=== PATIENT | male | born 1950 | race Caucasian/White ===

== ENCOUNTER 2017-11-12 07:39 | Emergency (ER) | payer MEDICARE, OTHER ==
[2017-11-12] MEDS ORDERED: Amoxicillin PO (*) 875 MG TAB PO ONE (10:23)
[2017-11-12 10:52] VITALS: BP 142/79
--- NOTE | 2017-11-12 11:49 | ED ---
Bhanu Black Stephanie, scribed for Tr Hughes MD on 11/12/17 at 0841 . Throat Pain/Nasal Congestion - HPI Summary HPI Summary: The pt is a 67 y/o M presenting to the ED with c/o epistaxis that began at 01: 30 today. He denies lightheadedness. The pt is on blood thinners. He denies hx of epistaxis. - History of Current Complaint Chief Complaint: EDEpistaxis Time Seen by Provider: 11/12/17 08:12 Hx Obtained From: Patient Onset/Duration: Sudden Onset, Lasting Hours - 7, Still Present Severity: Moderate - Allergies/Home Medications Allergies/Adverse Reactions: Allergies Allergy/AdvReac Type Severity Reaction Status Date / Time No Known Allergies Allergy Verified 04/27/16 13:32 PMH/Surg Hx/FS Hx/Imm Hx Endocrine/Hematology History: Reports: Hx Diabetes - Pre-DM Cardiovascular History: Reports: Hx Deep Vein Thrombosis, Hx Hypercholesterolemia, Hx Hypertension Denies: Hx Pacemaker/ICD Respiratory History: Reports: Hx Sleep Apnea Denies: Hx Asthma Musculoskeletal History: Reports: Other Musculoskeletal History - back surgerys Sensory History: Reports: Hx Contacts or Glasses Denies: Hx Hearing Aid Opthamlomology History: Reports: Hx Contacts or Glasses Psychiatric History: Reports: Hx Depression Denies: Hx Panic Disorder - Surgical History Surgery Procedure, Year, and Place: 3 LSPINE SURGERIES 30 YRS AGO, 12 YRS AGO, LAST ONE 10 YRS AGO, GANGLION CYST REMOVED LEFT KNEE - Immunization History Date of Tetanus Vaccine: UTD Date of Influenza Vaccine: 2014 Infectious Disease History: No Infectious Disease History: Denies: Traveled Outside the [place] in Last 30 Days - Family History Known Family History: Positive: Cardiac Disease, Other - uterine CA - Social History Occupation: Retired Lives: With Family Alcohol Use: Rare Hx Substance Use: No Substance Use Type: Reports: None Hx Tobacco Use: No Smoking Status (MU): Never Smoked Tobacco Have You Smoked in the Last Year: No Review of Systems Negative: Fever Positive: Epistaxis Neurological: Other - Negative: lightheadedness All Other Systems Reviewed And Are Negative: Yes Physical Exam - Summary Physical Exam Summary: General: well-appearing, no pain, the pt is actively spitting out blood. Skin: warm, color reflects adequate perfusion, dry Head: normal Eyes: EOMI, AUDRA ENT: fresh blood on L nasal septum, blood in back of mouth Neck: supple, nontender Respiratory: CTA, breath sounds present Cardiovascular: RRR Abdomen: soft, nontender Bowel: present Musculoskeletal: normal, strength/ROM intact Neurological: normal, sensory/motor intact, A&O x3 Psychological: affect/mood appropriate Triage Information Reviewed: Yes Vital Signs On Initial Exam: Initial Vitals Temp Pulse Resp BP Pulse Ox 97.8 F 70 20 169/103 99 11/12/17 07:39 11/12/17 07:39 11/12/17 07:39 11/12/17 07:39 11/12/17 07:39 Vital Signs Reviewed: Yes Diagnostics - Vital Signs Vital Signs Temp Pulse Resp BP Pulse Ox 11/12/17 08:10 154/79 11/12/17 07:39 97.8 F 70 20 169/103 99 - Laboratory Lab Statement: Any lab studies that have been ordered have been reviewed, and results considered in the medical decision making process. Re-Evaluation - Re-Evaluation First Eval Re-Evaluation Time: 09:25 Change: Unchanged - Interior bleeding has slowed down. The pt is still coughing up some clots. The pt feels improved overall. Second Eval Re-Evaluation Time: 10:32 Change: Improved - Still coughing up some small amount of blood. ED physician further inflated the rhino rocket. ED physician spoke to who recommended for the pt to follow up in 4 days. EENT Course/Dx - Course Course Of Treatment: BP noted and advised to follow up with PCP. PT ON XARELTO FOR RECURRENT DVTs. BLEEDING SEEN LEFT NASAL SEPTUM. RHINO ROCKET PLACED WHICH SLOWED THE BLEEDING TO AN OCCATIONAL DRIP ANTERIOR AND OCCATIONAL COUGHING UP A CLOT. VSS. DISCUSSED WITH DR ABREU; PATIENT WILL CALL THE ENT OFFICE TODAY FOR F/U. RETURN TO ED IF WORSE. - Diagnoses Provider Diagnoses: HTN (hypertension), Epistaxis - Provider Notifications Discussed Care Of Patient With: Flip Abreu Time Discussed With Above Provider: 10:23 Discharge - Sign-Out/Discharge Documenting (check all that apply): Discharge - Discharge Plan Condition: Stable Disposition: HOME Prescriptions: Amoxicillin PO (*) [Amoxicillin 875 MG (*)] 875 mg PO BID #14 tab Patient Education Materials: Nosebleed (ED) Referrals: [facility] [Provider Group] Flip Abreu MD [Medical Doctor] - Megan Dasilva MD [Primary Care Provider] - Additional Instructions: FOLLOW UP WITH ENT. I SPOKE WITH DR ABREU ENT. HE ASKED FOR YOU TO CALL THE ENT OFFICE TODAY TO ARRANGE FOLLOW UP. RETURN TO THE EMERGENCY DEPARTMENT FOR ANY WORSENING OF YOUR CONDITION OR QUESTIONS OR CONCERNS. YOUR BLOOD PRESSURE WAS ELEVATED TODAY; FOLLOW UP WITH YOUR PRIMARY CARE DOCTOR WITHIN ONE WEEK. - Billing Disposition and Condition Condition: STABLE Disposition: HOME The documentation as recorded by the Bhanu garvin Stephanie accurately reflects the service I personally performed and the decisions made by me, Tr Hughes MD.
--- NOTE | 2017-11-13 02:54 | CONSULT ---
Consult Consult: PCP: Oma Dasilva MD Otorhinolaryngology: Fuentes Garces MD Date/Time: 11/12/2017 2200 Reason for Consult: post-procedural hypertension HPI: Mr Gary is a 67YO male seen in PACU post-procedure for epistaxis. Nursing reports his systolic was briefly above 200 for which he was given labetalol. His pressures have come down to the 160-180 systolic range. He denies chest pain , SOB, nausea, sweats, palpitations, light-headedness, focal W/N/T, change in speech/vision/swallow, or other issues. He does have a HX of HTN and is followed by Oma Dasilva MD. PMedHx DM2 DVT x2 HTN HLD hypothyroidism depression [facility] Orders PARoxetine HCL TAB* [Paxil TAB*] 20 mg PO DAILY 12/05/13 Acetaminophen TAB* [Tylenol TAB*] 650 mg PO Q4H PRN 04/27/16 Metformin HCl [Metformin HCl ER] 500 mg PO DAILY 04/27/16 Rivaroxaban TAB(*) [Xarelto 20 mg] 20 mg PO DAILY 04/27/16 Atorvastatin* [Lipitor 20 MG*] 20 mg PO 2100 #30 tab 04/30/16 Amoxicillin PO (*) [Amoxicillin 875 MG (*)] 875 mg PO BID #14 tab 11/12/17 Levothyroxine Sodium 100 mcg PO DAILY 11/12/17 Allergies No Known Allergies Allergy (Verified 11/12/17 19:30) PSurgHx spinal surgery x3 L knee arthroscopy SocHx: no tobacco, occasional alcohol, no recreational drugs; lives with his significant other; retired social services analyst; full code status FamHx: positive for HTN, CAD, & uterine CA ROS: as above, otherwise reviewed and all were negative vitals: Vital Signs Temp 36.3 C 11/12/17 10:53 Pulse 78 11/12/17 10:53 Resp 16 11/12/17 10:53 BP 142/79 11/12/17 10:53 Pulse Ox 96 11/12/17 10:53 Intake & Output 11/12/17 11/12/17 11/13/17 11:59 23:59 11:59 Weight 94.347 kg Constitutional: NAD, normally developed, overweight white male HEENM: atraumatic; sclera/conjunctiva: anicteric/clear; hearing: clinically intact; nasal dressing clean & dry; oropharynx: clear, mucosa moist Neck: soft tissue: non-tender; thyroid: normal Pulmonary: clear to auscultation bilaterally, good aeration, no accessory muscle use CV: RR/RR, normal S1S2, no carotid bruit, no jugular venous distention, 2+ B DP/ PT, no edema Abdominal: soft, non-distended, non-tender, no rebound/guarding/rigidity, normoactive bowel sounds, no hepatosplenomegaly or masses, no costovertebral angle tenderness Musculoskeletal: general: grossly intact; gait: stable Integumental: normal appearance and texture of exposed skin Psychiatric orientation: AA&O to PPS affect: calm mood: cooperative eye contact: good content: reliable responses: timely insight: good Impression: 67M s/p procedure for epistaxis, HX HTN with exacerbation DIAGNOSIS & PLAN Primary epistaxis : management per ORL HTN, acutely uncontrolled w/o urgency/emergency : improved & asymptomatic : OK to discharge : patient has F/U appointment with PCP on the for chest pain, SOB, N/V, palpitations, light-headedness, focal W/N/T, change in speech/swallow/vision, or other symptom worrisome enough to patient to warrant emergency evaluation Secondary DM2 : continue metformin HX DVT x2 : continue rivaroxaban HLD : continue atorvastatin hypothyroidism : continue levothyroxine depression : continue paroxetine
== END 2017-11-12 10:53 | disposition home or self-care (01) ==
LOC: ED 07:39
DX: R04.0 Epistaxis (principal); I10 Essential (primary) hypertension; E11.9 Type 2 diabetes mellitus without complications; Z86.718 Personal history of other venous thrombosis and embolism; E78.5 Hyperlipidemia, unspecified; F32.9 Major depressive disorder, single episode, unspecified; E03.9 Hypothyroidism, unspecified; G47.33 Obstructive sleep apnea (adult) (pediatric)
CPT/HCPCS: 30901; 99282; A9270-GY; J1100; J2001; J2250; J2405; J2704; J3010

== ENCOUNTER 2017-11-12 19:10 | Day surgery (SDC) | payer MEDICARE, OTHER ==
[2017-11-12] MEDS ORDERED: Sodium Citrate/Citric Acid* 15 ML UDC ONE (19:51)
[2017-11-12] MEDS ORDERED: fentaNYL* 50 MCG/ML 2 ML VIAL (100 MCG VIAL) ONE ×3 (20:14→22:54)
[2017-11-12] MEDS ORDERED: Propofol* 10 MG/ML 20 ML BTL IV PUSH ONE (20:15)
[2017-11-12] MEDS ORDERED: Lidocaine 2% PF * 5 ML VIAL ONE (20:16)
[2017-11-12] MEDS ORDERED: Scopolamine 1.5 mg* PATCH TRANSDERM PRN (20:58)
[2017-11-12] MEDS ORDERED: Ondansetron INJ* 2 MG/ML VIAL IV PRN (20:58)
[2017-11-12] MEDS ORDERED: HYDROmorphone INJ* 1 MG/ML CARPUJECT SYRINGE IV PRN (20:58)
[2017-11-12] MEDS ORDERED: PROCHLORPERAZINE INJ 5 MG/ML 2 ML VIAL IV PRN (20:58)
[2017-11-12] MEDS ORDERED: Naloxone* 0.4 MG/ML 1 ML VIAL IV PRN (20:58)
[2017-11-12] MEDS ORDERED: fentaNYL* 50 MCG/ML 2 ML VIAL (100 MCG VIAL) IV PRN (20:58)
[2017-11-12] MEDS ORDERED: Lidocaine 1% MPF wEPI 200,000* 30 ML SDV ONE (21:49)
[2017-11-12] MEDS ORDERED: Oxymetazoline 0.05% NASAL SPR* 15 ML BTL ONE ×2 (21:49→22:41)
[2017-11-12] MEDS ORDERED: Lidocaine 4% TOPICAL* 50 ML TOP.SOLN ONE (21:49)
[2017-11-12] MEDS ORDERED: Midazolam* 1 MG/ML 5 ML VIAL (5 MG) ONE (22:03)
[2017-11-12] MEDS ORDERED: Ondansetron INJ* 2 MG/ML VIAL ONE (22:15)
[2017-11-12] MEDS ORDERED: Dexamethasone IV* 4 MG/ML 1 ML (4 MG) ONE (22:15)
[2017-11-12] MEDS ORDERED: Labetalol IV* 5 MG/ML 20 ML VIAL ONE (22:52)
[2017-11-13 00:34] VITALS: BP 156/75
--- NOTE | 2017-11-13 15:11 | OP ---
DATE OF OPERATION: 11/12/17 - SDS DATE OF : 54 SURGEON: Preston Garces MD PRE-OP DIAGNOSIS: Epistaxis. POST-OP DIAGNOSIS: Epistaxis. OPERATIVE PROCEDURE: Endoscopic control of epistaxis with cautery and packing with Fibrillar under general endotracheal anesthesia. COMPLICATIONS: None. DISPOSITION: Good. SPECIMENS: Minimal during the procedure. INDICATIONS: The patient has been on Xarelto and he presented to the office earlier in the day with epistaxis. Dr. Abreu was able to get a Merocel pack in , but no more than that. He has a large septal spur that he was not able to get around and he thought the bleeding might be posterior to this. He went home , but called with continuing epistaxis and I brought him to the operating room for control. DESCRIPTION OF PROCEDURE: He was placed on the supine position in the operating room, general anesthesia induced, orotracheally intubated. The Merocel pack was in the left nostril. This was removed. His clots were suctioned and he had bleeding for multiple sites including the anterior septum off the spur and off the posterior middle turbinate. I cauterized all these different areas, suctioned out clot, packed with New-Synephrine, removed that and controlled everything that was bleeding. I placed Fibrillar in these areas posteriorly along the posterior aspect of the middle turbinate, between the middle turbinate and the septum, around the spur and anteriorly in his nose. This was sprayed with New-Synephrine. The patient tolerated the procedure well, no complications. [id number]/[facility] #: [id number] [facility]
[2017-11-15] MEDS ORDERED: Scopolamine PATCH Remove* 1 NOTE MISC PATCH OFF ONE (20:59)
== END 2017-11-13 00:58 | disposition home or self-care (01) ==
LOC: SDS 19:10
PROVIDERS: ATTEND Otolaryngology
DX: R04.0 Epistaxis (principal); Z79.01 Long term (current) use of anticoagulants; T45.515A Adverse effect of anticoagulants, initial encounter; E11.9 Type 2 diabetes mellitus without complications; Z79.84 Long term (current) use of oral hypoglycemic drugs; Z86.718 Personal history of other venous thrombosis and embolism; I10 Essential (primary) hypertension; E03.9 Hypothyroidism, unspecified; E78.00 Pure hypercholesterolemia, unspecified; Z86.73 Personal history of transient ischemic attack (TIA), and cerebral infarction without residual deficits
CPT/HCPCS: A9270-GY; J1100; J2001; J2250; J2405; J2704; J3010

== ENCOUNTER 2018-11-12 12:08 | Emergency (ER) | payer MEDICARE, OTHER ==
[2018-11-12] MEDS ORDERED: oxyCODONE TAB* 5 MG TAB PO ONE (13:05)
--- NOTE | 2018-11-12 13:06 | ED ---
Lower Extremity - HPI Summary HPI Summary: Patient is a 68-year-old male who presents emergency department for right hip pain times several days. 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 Patient's is unable to sleep walk secondary to pain. He notes a history of back she is denies new worsening back pain. He denies numbness, tingling or weakness in legs. Denies bowel or bladder, sensory retention. Denies abdominal pain, vomiting, diarrhea, fever, chest pain or shortness of breath. Patient has been taking [id number] analgesics with no improvement of pain. Symptoms are mild in severity. Walking makes symptoms worse. Rest makes symptoms better. - History of Current Complaint Chief Complaint: EDBackInjuryPain Stated Complaint: HIP/BACK PAIN PER PT Time Seen by Provider: 11/12/18 12:46 Hx Obtained From: Patient Pain Intensity: 9 - Allergies/Home Medications Allergies/Adverse Reactions: Allergies Allergy/AdvReac Type Severity Reaction Status Date / Time No Known Allergies Allergy Verified 11/12/18 12:12 Home Medications: Home Medications Lisinopril 1 tab PO DAILY 11/12/18 [History Confirmed 11/12/18] PMH/Surg Hx/FS Hx/Imm Hx Previously Healthy: Yes Endocrine/Hematology History: Reports: Hx Diabetes - Pre-DM Cardiovascular History: Reports: Hx Deep Vein Thrombosis, Hx Hypercholesterolemia, Hx Hypertension Denies: Hx Pacemaker/ICD Respiratory History: Reports: Hx Sleep Apnea Denies: Hx Asthma Musculoskeletal History: Reports: Other Musculoskeletal History - back surgerys Sensory History: Reports: Hx Contacts or Glasses Denies: Hx Hearing Aid Opthamlomology History: Reports: Hx Contacts or Glasses Psychiatric History: Reports: Hx Depression Denies: Hx Panic Disorder - Surgical History Surgery Procedure, Year, and Place: 3 LSPINE SURGERIES 30 YRS AGO, 12 YRS AGO, LAST ONE 10 YRS AGO, GANGLION CYST REMOVED LEFT KNEE - Immunization History Date of Tetanus Vaccine: UTD Date of Influenza Vaccine: 2014 Infectious Disease History: No Infectious Disease History: Denies: Traveled Outside the [place] in Last 30 Days - Family History Known Family History: Positive: Cardiac Disease, Other - uterine CA - Social History Occupation: Retired Lives: With Family Alcohol Use: Rare Hx Substance Use: No Substance Use Type: Reports: None Hx Tobacco Use: No Smoking Status (MU): Never Smoked Tobacco Have You Smoked in the Last Year: No Review of Systems Constitutional: Negative Negative: Fever, Chills Cardiovascular: Negative Respiratory: Negative Gastrointestinal: Negative Negative: Abdominal Pain, Vomiting, Diarrhea Genitourinary: Negative Negative: dysuria, flank pain Positive: Other - right hip pain Neurological: Negative Negative: Weakness, Paresthesia, Numbness All Other Systems Reviewed And Are Negative: Yes Physical Exam Triage Information Reviewed: Yes Vital Signs On Initial Exam: Initial Vitals Temp Pulse Resp BP Pulse Ox 97.3 F 74 20 169/93 96 11/12/18 12:12 11/12/18 12:12 11/12/18 12:12 11/12/18 12:12 11/12/18 12:12 Vital Signs Reviewed: Yes Appearance: Positive: Well-Appearing - pt. lying in bed on side, appears in pain but nontoxic. Skin: Positive: Warm, Dry Head/Face: Positive: Normal Head/Face Inspection Eyes: Positive: Normal, EOMI Neck: Positive: Supple Abdomen Description: Positive: Nontender, Soft Musculoskeletal: Positive: Other - No lumbar tenderness. Pain to left groin and with ROM of leg. 5/5 strength in bilateral LEs. Negative straight leg test. good bilateral pedal pulses. no calf edema or pain Neurological: Positive: Normal, CN Intact II-III Psychiatric: Positive: Affect/Mood Appropriate Diagnostics - Vital Signs Vital Signs Temp Pulse Resp BP Pulse Ox 11/12/18 12:12 97.3 F 74 20 169/93 96 - Laboratory Lab Statement: Any lab studies that have been ordered have been reviewed, and results considered in the medical decision making process. Lower Extremity Course/Dx - Course Course Of Treatment: Pt. presenting for right hip pain after lifting. He was given a dose of pain medication and xray ordered. Xrays shows osteoarthritis without acute findings per radiology. On reexam pt. feeling a bit better. He was able to ambulate across room with mild pain. WIll hold off on ct to r/o occult fx since pt. is ambulatory. Short rx of pain medication given. ARC WELDING MACHINE OPERATOR reviewed. Advised pt. to f.u with ortho or pcp for further evaluation. To return to er if sxs change or worsen. pt. understands and agrees with plan. - Diagnoses Differential Diagnosis/HQI/PQRI: Positive: Arthritis, Dislocation, DVT, Fracture (Closed), Sprain, Strain Provider Diagnoses: Hip pain, Osteoarthritis Discharge - Sign-Out/Discharge Documenting (check all that apply): Patient Departure Patient Received Moderate/Deep Sedation with Procedure: No - Discharge Plan Condition: Good Disposition: HOME Prescriptions: oxyCODONE/Acetamin 5/325 MG* [Percocet 5/325 TAB*] 1 tab PO Q6H PRN #12 tab MDD 4 tablets PRN Reason: Pain Patient Education Materials: Osteoarthritis (ED), Hip Pain (ED) Referrals: Megan Dasilva MD [Primary Care Provider] - Timmy Fields MD [Medical Doctor] - Additional Instructions: Schedule a follow up appointment with orthopedics for further evaluation Pain medication as directed Ice intermittently Gentle stretching Return to ER if symptoms change or worsen - Billing Disposition and Condition Condition: GOOD Disposition: Home
[2018-11-12 15:26] VITALS: BP 168/69
== END 2018-11-12 15:25 | disposition home or self-care (01) ==
LOC: ED 12:08
DX: M25.551 Pain in right hip (principal); X50.0XXA Overexertion from strenuous movement or load, initial encounter; Y92.9 Unspecified place or not applicable; Z86.718 Personal history of other venous thrombosis and embolism; E78.00 Pure hypercholesterolemia, unspecified; I10 Essential (primary) hypertension; G47.30 Sleep apnea, unspecified; F32.9 Major depressive disorder, single episode, unspecified; M16.0 Bilateral primary osteoarthritis of hip
CPT/HCPCS: 99282; A9270-GY

== ENCOUNTER 2018-11-17 11:41 | Emergency (ER) | payer MEDICARE ==
[2018-11-17 12:51] VITALS: BP 164/91
--- NOTE | 2018-11-17 13:17 | ED ---
Back Pain - HPI Summary HPI Summary: Patient is a 68-year-old male with a history of herniated disks and back surgeries presenting to the ED with right lower back pain over sciatic notch. Symptoms have been present intermittently times approximately one week. He was seen 4 days ago in the ED for same. 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 He was prescribed hydrocodone as well as a steroid. He has also been taking ibuprofen without much relief. He has also had a follow-up to his PCP yesterday who scheduled him for an MRI this afternoon. He arrives today with a request to have the MRI here, despite having an appt for this in a few hours. He has taken 200 tramadol today and is currently on his third dose of steroid. He denies weakness in the leg. Denies any n/t. Denies b/b dysunction. He endorses a sharp shooting pain down the posterior leg, anterior thigh and right anterior groin. Denies fevers, sweats or chills and denies any pain directly over the spine. - History of Current Complaint Chief Complaint: EDBackInjuryPain Stated Complaint: BACK, HIP PAIN PER EMS Time Seen by Provider: 11/17/18 11:46 Hx Obtained From: Patient Onset/Duration: Sudden Onset Onset/Duration: Started Hours Ago Timing: Constant Back Pain Location: Is Discrete @ - right sided low back pain Severity Initially: Severe Severity Currently: Severe Pain Intensity: 6 Pain Scale Used: 0-10 Numeric Character: Aching Aggravating Symptom(s): Movement Alleviating Symptom(s): Rest Associated Signs And Symptoms: Negative: Redness, Weakness, Abdominal Pain, Flank Pain, Bladder Incontinence, Bowel Incontinence, Weight Loss, Pain with Weight Bearing - Risk Factors AAA Risk Factors: Negative TAD Risk Factors: Negative Cauda Equina Risk Factors: Negative Epidural Abscess Risk Factors: Negative - Allergies/Home Medications Allergies/Adverse Reactions: Allergies Allergy/AdvReac Type Severity Reaction Status Date / Time No Known Allergies Allergy Verified 11/12/18 12:12 PMH/Surg Hx/FS Hx/Imm Hx Previously Healthy: Yes Endocrine/Hematology History: Reports: Hx Diabetes - Pre-DM Cardiovascular History: Reports: Hx Deep Vein Thrombosis, Hx Hypercholesterolemia, Hx Hypertension Denies: Hx Pacemaker/ICD Respiratory History: Reports: Hx Sleep Apnea Denies: Hx Asthma Musculoskeletal History: Reports: Other Musculoskeletal History - back surgerys Sensory History: Reports: Hx Contacts or Glasses Denies: Hx Hearing Aid Opthamlomology History: Reports: Hx Contacts or Glasses Psychiatric History: Reports: Hx Depression Denies: Hx Panic Disorder - Surgical History Surgery Procedure, Year, and Place: 3 LSPINE SURGERIES 30 YRS AGO, 12 YRS AGO, LAST ONE 10 YRS AGO, GANGLION CYST REMOVED LEFT KNEE - Immunization History Date of Tetanus Vaccine: UTD Date of Influenza Vaccine: 2014 Hx Pertussis Vaccination: No Immunizations Up to Date: Yes Infectious Disease History: No Infectious Disease History: Denies: Traveled Outside the [place] in Last 30 Days - Family History Known Family History: Positive: Cardiac Disease, Other - uterine CA - Social History Occupation: Employed Full-time Lives: With Family Alcohol Use: Rare Hx Substance Use: No Substance Use Type: Reports: None Hx Tobacco Use: No Smoking Status (MU): Never Smoked Tobacco Have You Smoked in the Last Year: No Review of Systems Constitutional: Negative Negative: Fever, Chills, Fatigue, Skin Diaphoresis Negative: Palpitations, Chest Pain Negative: Shortness Of Breath, Cough Genitourinary: Negative Positive: no symptoms reported, see HPI Positive: Arthralgia - back pain - worse to the R side. Negative: Myalgia Negative: Rash, Bruising Neurological: Negative Psychological: Normal All Other Systems Reviewed And Are Negative: Yes Physical Exam Triage Information Reviewed: Yes Vital Signs On Initial Exam: Initial Vitals Temp Pulse Resp BP Pulse Ox 98.5 F 76 18 176/101 99 11/17/18 11:46 11/17/18 11:46 11/17/18 11:46 11/17/18 11:46 11/17/18 11:46 Vital Signs Reviewed: Yes Appearance: Positive: Well-Appearing, Well-Nourished Skin: Positive: Warm, Skin Color Reflects Adequate Perfusion Head/Face: Positive: Normal Head/Face Inspection Eyes: Positive: EOMI, Conjunctiva Clear Neck: Positive: No Lymphadenopathy Respiratory/Lung Sounds: Positive: Clear to Auscultation, Breath Sounds Present Cardiovascular: Positive: RRR, Pulses are Symmetrical in both Upper and Lower Extremities Diagnostics - Vital Signs Vital Signs Temp Pulse Resp BP Pulse Ox 11/17/18 12:50 98 F 70 18 164/91 99 11/17/18 11:47 76 99 11/17/18 11:46 98.5 F 73 18 176/101 99 - Laboratory Lab Statement: Any lab studies that have been ordered have been reviewed, and results considered in the medical decision making process. Back Pain Course/Dx - Course Course Of Treatment: During the patient's post treatment, he is evaluated for right sided low back pain over sciatic notch. He does have an MRI scheduled today in a few hours. He is currently on pain management as well as a steroid and ibuprofen. I've explained to the patient, I'm unable to offer him additional medications at this time and since he has an MRI scheduled, I have advised him to complete that is scheduled. CT is okay for discharge and I have given him heating pads for relief. - Diagnoses Differential Diagnosis/HQI/PQRI: Positive: Strain, Sprain Provider Diagnoses: Sciatic leg pain Discharge - Sign-Out/Discharge Documenting (check all that apply): Patient Departure Patient Received Moderate/Deep Sedation with Procedure: No - Discharge Plan Condition: Stable Disposition: HOME Patient Education Materials: Sciatica (ED) Referrals: Megan Dasilva MD [Primary Care Provider] - Additional Instructions: Heat to the area Continue to take your at home medications as prescribed - Billing Disposition and Condition Condition: STABLE Disposition: Home
== END 2018-11-17 12:50 | disposition home or self-care (01) ==
LOC: ED 11:41
DX: M54.30 Sciatica, unspecified side (principal); I10 Essential (primary) hypertension; R73.03 Prediabetes; E78.00 Pure hypercholesterolemia, unspecified; F32.9 Major depressive disorder, single episode, unspecified; Z86.718 Personal history of other venous thrombosis and embolism
CPT/HCPCS: 99282

== ENCOUNTER 2019-01-18 10:13 | Observation (INO) | payer MEDICARE ==
[~2019-01-18 10:13] MED LIST: Buffered Lidocaine 1% SYRIN* 1 ML/SYRINGE INTRADERM ONE; Lactated Ringers 1000 ML Bag* 1,000 ML IV SCH; Sodium Citrate/Citric Acid* 15 ML UDC PO ONE
[2019-01-18] MEDS ORDERED: ceFAZolin 2 GM PREMIX in ORs 2 GM/50 ML BAG ONE (10:26)
[2019-01-18] MEDS ORDERED: Sodium Citrate/Citric Acid* 15 ML UDC ONE (10:26)
[2019-01-18] MEDS ORDERED: Buffered Lidocaine 1% SYRIN* 1 ML/SYRINGE INTRADERM ONE (10:27)
[2019-01-18] MEDS ORDERED: Lidocaine 1% MPF wEPI 200,000* 30 ML SDV ONE (11:58)
[2019-01-18] MEDS ORDERED: Thrombin 5,000 UNITS* 1 APPLIC KIT - topical use - TOPICAL ONE (11:59)
[2019-01-18] MEDS ORDERED: Bacitracin INJECTION* 50,000 UNITS ONE (11:59)
[2019-01-18] MEDS ORDERED: Succinylcholine* 20 MG/ML 10 ML VIAL ONE (12:18)
[2019-01-18] MEDS ORDERED: Propofol* 10 MG/ML 20 ML BTL ONE (12:18)
[2019-01-18] MEDS ORDERED: Lidocaine 2% PF * 5 ML VIAL ONE (12:18)
[2019-01-18] MEDS ORDERED: fentaNYL* 50 MCG/ML 2 ML VIAL (100 MCG VIAL) ONE ×2 (12:25→17:47)
[2019-01-18] MEDS ORDERED: Midazolam* 1 MG/ML 2 ML VIAL (2 MG) ONE (12:25)
[2019-01-18] MEDS ORDERED: Propofol* 100 ML ONE (12:26)
[2019-01-18] MEDS ORDERED: Propofol* 500 MG/50 ML BTL ONE (12:26)
[2019-01-18] MEDS ORDERED: Remifentanil* 2 MG VIAL ONE (12:27)
[2019-01-18] MEDS ORDERED: DiMENhydriNATE IV* 50 MG/ML VIAL IV PUSH PRN (16:26)
[2019-01-18] MEDS ORDERED: Naloxone* 0.4 MG/ML 1 ML VIAL IV PRN (16:26)
[2019-01-18] MEDS ORDERED: Ketorolac INJ* 30 MG/ML 1 ML VIAL ONE (16:39)
[2019-01-18] MEDS ORDERED: Zolpidem TAB* 10 MG PO PRN (17:22)
[2019-01-18] MEDS ORDERED: Ondansetron INJ* 2 MG/ML VIAL IV PRN (17:22)
[2019-01-18] MEDS ORDERED: Magnesium Hydroxide LIQ* 30 ML UDC PO PRN (17:22)
[2019-01-18] MEDS ORDERED: Cyclobenzaprine TAB* 10 MG PO PRN (17:29)
[2019-01-18] MEDS: fentaNYL* 50 MCG/ML 2 ML VIAL (100 MCG VIAL) IV PRN ×2 (17:48→18:10)
[2019-01-18] MEDS ORDERED: Lactated Ringers 1000 ML Bag* 1,000 ML IV SCH (18:00)
[2019-01-18] MEDS: oxyCODONE TAB* 5 MG TAB PO PRN (23:21)
[2019-01-18] MEDS: oxyCODONE/Acetamin 5/325 MG* TAB PO PRN (23:21)
--- NOTE | 2019-01-19 02:13 | OP ---
DATE OF OPERATION: 01/18/19 - ROOM #331 DATE OF : 54 SURGEON: Brandon Sandhu MD. ENVIRONMENTAL SERVICES MANAGER: Micaela Goldstein PA-C. The case was done with the assistance of surgical physician nurse practitioner physician assistant because of the complexity of the case. ANESTHESIA: General. PRE-OP DIAGNOSIS: Degenerative disk disease, right L2-3 and L3-4 bilateral disk herniation. POST-OP DIAGNOSIS: Degenerative disk disease, right L2-3 and L3-4 bilateral disk herniation. OPERATIVE PROCEDURE: The patient underwent right redo MIS L3-4 and L2-3 for lateral diskectomy. ESTIMATED BLOOD LOSS: 50 mL. COMPLICATIONS: None. SUMMARY: The patient is a very pleasant 68-year-old gentleman with complaints of back pain radiating to the right lower extremity. 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 The patient has a history of deep venous thrombosis and was on Xarelto. After obtaining medical clearance and failing conservative modalities, he was offered the option of surgical intervention in the form of lateral diskectomy at L3- 4 and L2-3. After explaining expectations , limitations, and possible complications of the procedure to the patient with complications including, but not limited to, bleeding, infection, risk of injury to adjacent structures, paralysis, , need for additional procedure, anesthesia risks, stroke, blindness, cancer, instability, hardware failure, adjacent level disease, pseudoarthrosis, spinal fluid leak, injury to the bladder or bowel, injury to the intraabdominal contents, injury to the lumbar plexus, vascular injury, postoperative hematoma with loss of urinary and GI function; the patient was agreeable to proceed with surgery and informed consent was obtained. The patient understood that his condition may not improve and in fact, may get worse after surgery and that he may need to have additional procedure in the future. He also understood that operative plan may be modified according to intraoperative findings and conditions and that the procedure may be abandoned or done in more than 1 stages. He also understood that he may require prolonged ICU stay or prolonged hospitalization, need for tracheostomy or gastrostomy or need for further surgical interventions and that by stopping Xarelto, he is in risk for thromboembolic complications. DESCRIPTION OF PROCEDURE: The patient was brought to the operating room and was placed under general anesthesia by the anesthesia team. He was carefully positioned prone on the Norris table on Elias frame and all bony prominences were meticulously padded. His skin was prepped and draped in a standard fashion. After appropriate surgical pause and patient identification, the previous multiple scars from previous laminectomies were identified and marked on the skin. With the assistance of intraoperative fluoroscopic imaging, the appropriate skin level at L3-4 and L2-3 was identified and the previous incision at that level was identified and extended cephalad and caudal to accommodate a more bilateral approach. Patient's skin was infiltrated with local anesthetic and #10 surgical blade was used to incise the skin. The incision was carried down to the dorsal fascia and after gentle undermining of the skin, this was gently retracted towards the right of the midline in order to accommodate placement of METRx tubular retractor to obtain optimal lateral to medial trajectory. The dorsal fascia was then incised with #10 surgical blade and over the series of dilators, a METRx tubular retractor was first introduced over the right lateral L3-4 disk space. Under fluoroscopic magnification, the lateral aspect of the facet as well as the transverse process of L4 were identified and they were gently exposed. Then, foraminotomy was performed with the use of 2-0 [place] as well as high-speed drill. The Kambin's triangle was identified and after exposure of the superior, medial, and lateral part of the pedicle of L4, the disk space was gently identified after exposure of Kambin's triangle with a #4 [place]. The disk space was then gently exposed and a #15 surgical blade was used to incise the annulus fibrosus and diskectomy was carried out with a series of pituitary rongeurs. A significant amount of scar tissue was encountered to the exposure and during the diskectomy and at the end of procedure, there was no mass effect at the lateral aspect of the disk space. After confirmation of meticulous hemostasis and copious irrigation and meticulous inspection, the tubular retractor was gently removed and the dorsal fascia was approximated with 0 interrupted Vicryl sutures. The procedure was then repeated for the L2-3 disk space with insertion of the METRx tubular retractor through a separate fascial incision. After removal of the tubular retractor system and closing of dorsal fascia defects with interrupted 0-Vicryl sutures. Copious irrigation was performed, and then attention was brought to close the wound by layers with inverted interrupted 0-Vicryl sutures to approximate the subcutaneous tissue as well as with 2-0 inverted interrupted Vicryl suture to approximate the subcutaneous tissue and the skin. The skin was covered with Dermabond and sterile dressings. At the end of the procedure, all counts were reported to be correct. The patient remained hemodynamically stable throughout the case. Intraoperative electro-physiological monitoring was stable throughout the case. The patient was then turned supine, was extubated and was transferred to Recovery in excellent condition. The case was done with assistance of surgical PA because of the complexity of the case. [id number]/[facility] #: [id number] [place]
[2019-01-19] MEDS: oxyCODONE TAB* 5 MG TAB PO PRN ×2 (04:58→09:48)
[2019-01-19] MEDS: oxyCODONE/Acetamin 5/325 MG* TAB PO PRN ×2 (04:58→09:47)
[2019-01-19 07:56] VITALS: BP 119/53
--- NOTE | 2019-01-19 09:26 | PN ---
Progress Note - Progress Note Date of Service: 01/19/19 SOAP: Subjective: 68 y/o male post MIS discectomy at L2/L3, L3/L4 POD # 1. Patient has been stable during his observational period. Over night his vitals have been stable, he reports some muscle pain arond the surgical site, but otherwise has no complaints. The pain in his right leg has improved and the sensation is starting to return. Patient feels that he is ready to go home. Objective: [] Vital Signs - 12 hr Temp Pulse Resp BP Pulse Ox 01/19/19 12:26 18 01/19/19 09:48 18 01/19/19 09:47 18 01/19/19 08:25 18 01/19/19 08:24 18 01/19/19 08:00 18 01/19/19 07:55 98.7 F 64 16 119/53 94 General: patient laying comfortable in bed on his side. NAD Neuro: GCS 15, A&O x 3 CN II - XII grossly intact. sensation impaired to light touch right later thigh, Muscle intact in all extremities 5/5. Derm: surgical wound C/D/I Assessment: 68 y/o male post MIS discectomy of L2/L3, L3/L4, patient has been stable during observation period, recovering appropriately well possible discharged. Plan: 1) pain control as needed 2) Walk with PT 3) Discharge planning
== END 2019-01-19 13:50 | disposition home or self-care (01) ==
LOC: OR 10:13 → SSU 19:02
PROVIDERS: ADMIT Neurological Surgery; ATTEND Neurological Surgery
DX: M51.16 Intervertebral disc disorders with radiculopathy, lumbar region (principal); M51.36 Other intervertebral disc degeneration, lumbar region; M54.9 Dorsalgia, unspecified
CPT/HCPCS: 36415; 76000; 86850; 86900; 86901; 96365; 96366; 96375; A9270-GY; G0378; G8978-GP-CH; G8979-GP-CH; G8980-GP-CH; J0330; J0690; J1885; J2001; J2250; J2704; J3010